=== PATIENT | male | born 1940 | race Caucasian/White ===

== ENCOUNTER 2017-08-12 22:17 | Emergency (ER) | payer OTHER, BC ==
[~2017-08-12] VITALS: Ht 172.7 cm; Wt 104.2 kg
[~2017-08-12 22:17] MED LIST: AMLODIPINE BES2.5 MG PO; BUDESONIDE EC3 MG PO; CRESTOR20 MG PO; DAILY VALUE1 EACH PO; DICYCLOMINE HCL20 MG PO; ENTOCORT EC3 MG PO; FEOSOL45 MG PO; IRON18 MG PO; LISINOPRIL-HCT1 EAC3 PO; OMEPRAZOLE40 M1 PO; PENTASA500 MG PO; PREDNISONE10 MG PO; PROBIOTIC1 EAC1 PO; XARELTO20 MG PO
[2017-08-12] MEDS ORDERED: AMOXICILLIN500 MG PO (23:40)
[2017-08-13 00:55] VITALS: BP 119/82
== END 2017-08-13 00:56 | disposition home or self-care (01) ==
LOC: EME 22:17
PROC: 2Y41X5Z Packing of Nasal Region using Packing Material (ICD-10-PCS; principal; 2017-08-12)
DX: R04.0 Epistaxis (principal); I10 Essential (primary) hypertension; Z79.01 Long term (current) use of anticoagulants
CPT/HCPCS: 99281; 99284